=== PATIENT | female | born 1955 | race Caucasian/White ===

== ENCOUNTER 2022-11-29 08:25 | Emergency (ER) | payer OTHER, BC ==
--- OUTSIDE RECORDS SUMMARY | 2022-11-29 08:33 | XMS REPORT | Continuity of Care Document ---
:1955 Author Organization [facility] t Address [address] [place] [address] [place] [id number] Care Team Providers Name Role Phone Irwin White Attending Clinician Unavailable Jina Attending Clinician Unavailable Balaji Rose Attending Clinician [phone] Balaji Rose Attending Clinician Unavailable Jina Admitting Clinician Unavailable Balaji Rose Admitting Clinician Unavailable Payers Payer Name Policy Type Policy Number Effective Date Expiration Date S blanquita [place]: [id number] [facility] [place] [id number] 2018 EMPLOYEE PROGRAM 00:00:00 Blue Cross Blue C1 [id number] Common [facility] Shield [facility] [place] [facility] [id number] [facility] Blue Cross Blue C1 [id number] Common [facility] [facility] [place] - [facility] MEDICARE NOV[place] [id number] [facility] MEDICARE NOV[place]AS MB [id number] [facility] Blue Cross Blue C1 [id number] [facility] [place] [facility] [place] [facility] Blue Cross Blue C1 [id number] Common [facility] - [facility] MEDICARE NOV[place] MB [id number] 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 [id number] Body mass Problem Com mon index Spirit [BMI] - CHI 40.0-44.9, [facility] Age-relate Age-relate Problem C ommon d d Spirit osteoporos osteoporos - CHI is is without [facility] pathologic Medica l al Center fracture [id number] Status Problem Common post Spirit replacemen - [facility] t of left [facility] Decreased Decreased Problem Com mon hearing hearing [facility] [id number] S/P Problem Common bilateral Spirit mastectomy - 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 Age Age Problem Common related related Spirit osteoporos osteoporos - CHI is is 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 - CHI neoplasm overlappin St of female g sites of Che es breast right [facility] female Center breast Osteoporos Osteoporos Problem C milan is is [facility] Obesity Body mass Problem Commo n index Spirit (BMI) of - CHI [address] 39[address]9 [facility] Allergies, Adverse Reactions, Alerts Allergy Allergy Status Severity Reaction(s) Onset Inactive Treating Comm ents Source Name Type Date Date Clinician Penicill DA Active SV THROAT AND 2021-0 [facility] ins EARS ITCH 3-10 Clear 00:00: [place] 00 [facility] Sulfa DA Active SV HIVES/BREATH [facility] (Sulfona ING 3-10 Clear mide DIFFICULTIES 00:00: [place] Antibiot 00 [facility] palonose DA Active SV HEADACHES [facility] matthew 3-10 Clear 00:00: [address] nitrofur DA Active SV HEADACHES 2021- [facility] antoin 3-10 Clear 00:00: [place] 00 [facility] tramadol DA Active SV NAUSEA 2021-0 [facility] 3-10 Clear 00:00: [place] 00 [facility] ondanset DA Active SV HEADACHES 2021- [facility] anita 3-10 Clear 00:00: [address] lotepred DA Active SV REDNESS/SWEL 2021-0 HC A nol LING/ITCH 3-10 Clear 00:00: [address] 30 Drug Active headache Common allergy [facility] palonose palonose Active headache Comm on matthew matthew [facility] nitrofur nitrofur Active headache Comm on antoin, antoin, Spirit macrocry macrocry CHI stals / stals / St nitrofur nitrofur [facility] antoin, antoin, Medical monohydr monohydr Center ate ate tramadol tramadol Active nausea Common [facility] penicill penicill Active throat, ears Common amine amine itching [facility] 5337 Drug Active shortness of Comm on allergy breath [facility] Social History Social Habit Start Date Stop Date Quantity Comments Source History of Tobacco Use Co mmon [facility] Sex Assigned At Com mon [facility] Smoking Status Start Date Stop Date Source Never Smoker Common [facility] Medications Ordered Filled Start Stop Current Ordering Indication Dosage Frequency Signature Comments Components Source Medication Medication Date Date Medication? Clinician (SIG) Name Name Luciana Chowdhury 2021-11 No 40mg Common (Triamcinol (Triamcinol 1-30 S pirit one) one) 00:00: - [facility] Luciana Chowdhury 2021-11 No 40mg Common (Triamcinol (Triamcinol 1-30 S pirit one) one) 00:00: - [facility] Azithromyci Azithromyci 2021-11- No QD Azithromyc n 250 MG n 250 MG 12-20 1205 in 250 MG 00:00: 00:00 00 :00 Medrol 4 MG Medrol 4 MG 2021-11- No Medrol 4 08 11-14 MG 00:00: 00:00 00 :00 Medrol 4 MG Medrol 4 MG 2021-11- No Medrol 4 08 11-14 MG 00:00: 00:00 00 :00 Azithromyci Azithromyci 2021-11- No QD Azithromyc n 250 MG n 250 MG 11-28- in 250 MG 00:00: 00:00 00 :00 Azithromyci Azithromyci 2021-11- No QD Azithromyc n 250 MG n 250 MG 11-28 11- in 250 MG 00:00: 00:00 00 :00 Benzonatate Benzonatate 2021-11- No 1{capsu TID Benzonatat 200 MG 200 MG 0-14 10-24 le} e 200 MG 00:00: 00:00 00 :00 Benzonatate Benzonatate 2021-11- No 1{capsu TID Benzonatat 200 MG 200 MG 0-14 10-24 le} e 200 MG 00:00: 00:00 00 :00 Azithromyci Azithromyci 2021-11- No QD Azithromyc n 250 MG n 250 MG 0-14 10-19 in 250 MG 00:00: 0000 00 :00 Azithromyci Azithromyci 2021-11- No QD Azithromyc n 250 MG n 250 MG 014 10-19 in 250 MG 00: 00 :00 Azithromyci Azithromyci 2021- No QD Azithromyc n 250 MG n 250 MG 05-21 in 250 MG 00:: 00 :00 Azithromyci Azithromyci 2021- No QD Azithromyc n 250 MG n 250 MG 05-21 in 250 MG 00:: 00 :00 hydrocodone hydrocodone No hydrocodon Sonia 5 5 3-16 e 5 Orthope mg-acetamin mg-acetamin 00:00: mg-acetami dic ophen 325 ophen 325 00 nophen 325 Sports mg tablet mg tablet mg tablet Medicin Take 1 Take 1 Take 1 e tablet by tablet by tablet by mouth every mouth every mouth four to six four to six every four hours as hours as to six needed for needed for hours as pain pain needed for pain Zofran 4 mg Zofran 4 mg No Zofran 4 Sonia tablet Take tablet Take 3-16 mg tablet Orthope 1 tablet by 1 tablet by 00:00: Take 1 dic mouth every mouth every 00 tablet by Sports six hours six hours mouth Medi derrek as needed as needed every six e for nausea for nausea hours as and/or and/or needed for vomiting vomiting nausea and/or vomiting Azithromyci Azithromyci 2020-11- No QD Azithromyc n 250 MG n 250 MG 12-01-16 in 250 MG 00:00: 00:00 00 :00 Azithromyci Azithromyci 2020-11- No QD Azithromyc n 250 MG n 250 MG 12-01-16 in 250 MG 00:00: 00:00 00 :00 Echinacea Echinacea No Echinacea 62.5 MG 62.5 MG 62.5 MG Montelukast Montelukast No Montelukas Sodium 10 Sodium 10 t Sodium MG MG 10 MG Ketoconazol Ketoconazol No Ketoconazo e 2 % e 2 % le 2 % Magnesium - Magnesium - No Magnesium - Super B Super B No Super B Complex Complex Complex Calcium Calcium No Calcium Cranberry Cranberry No Cranberry Ibandronate Ibandronate No Ibandronat Sodium 150 Sodium 150 e Sodium MG MG 150 MG Fish Oil Fish Oil No Fish Oil 875 MG 875 MG 875 MG Glucosamine Glucosamine No Glucosamin e Loratadine Loratadine No 1{table QD Loratadine 10 MG 10 MG t} 10 MG Hair Skin Hair Skin No Hair Skin Nails Nails Nails Gabapentin Gabapentin No Gabapentin 100 MG 100 MG 100 MG Tumersaid Tumersaid No Tumersaid Probiotic Probiotic No Probiotic Aspirin 81 Aspirin 81 No 1{table QD Aspirin 81 81 MG 81 MG t} 81 MG Olopatadine Olopatadine No Olopatadin HCl 0.2 % HCl 0.2 % e HCl 0.2 % Multi Multi No Multi Vitamin Vitamin Vitamin Echinacea Echinacea No Echinacea 62.5 MG 62.5 MG 62.5 MG Montelukast Montelukast No Montelukas Sodium 10 Sodium 10 t Sodium MG MG 10 MG Ketoconazol Ketoconazol No Ketoconazo e 2 % e 2 % le 2 % Magnesium - Magnesium - No Magnesium - Super B Super B No Super B Complex Complex Complex Calcium Calcium No Calcium Olopatadine Olopatadine No Olopatadin HCl 0.2 % HCl 0.2 % e HCl 0.2 % Loratadine Loratadine No 1{table QD Loratadine 10 MG 10 MG t} 10 MG Gabapentin Gabapentin No Gabapentin 100 MG 100 MG 100 MG Fish Oil Fish Oil No Fish Oil 875 MG 875 MG 875 MG Montelukast Montelukast No QD Montelukas Sodium 10 Sodium 10 t Sodium MG MG 10 MG Ketoconazol Ketoconazol No Ketoconazo e 2 % e 2 % le 2 % Tumersaid Tumersaid No Tumersaid Hair Skin Hair Skin No Hair Skin Nails Nails Nails Calcium Calcium No Calcium Gabapentin Gabapentin No Gabapentin 100 MG 100 MG 100 MG Echinacea Echinacea No Echinacea 62.5 MG 62.5 MG 62.5 MG Glucosamine Glucosamine No Glucosamin e Probiotic Probiotic No Probiotic Magnesium - Magnesium - No Magnesium - Multi Multi No Multi Vitamin Vitamin Vitamin Aspirin 81 Aspirin 81 No 1{table QD Aspirin 81 81 MG 81 MG t} 81 MG Cranberry Cranberry No Cranberry Super B Super B No Super B Complex Complex Complex Ibandronate Ibandronate No Ibandronat Sodium 150 Sodium 150 e Sodium MG MG 150 MG Olopatadine Olopatadine No Olopatadin HCl 0.2 % HCl 0.2 % e HCl 0.2 % Loratadine Loratadine No 1{table QD Loratadine 10 MG 10 MG t} 10 MG Gabapentin Gabapentin No Gabapentin 100 MG 100 MG 100 MG Fish Oil Fish Oil No Fish Oil 875 MG 875 MG 875 MG Montelukast Montelukast No QD Montelukas Sodium 10 Sodium 10 t Sodium MG MG 10 MG Ketoconazol Ketoconazol No Ketoconazo e 2 % e 2 % le 2 % Tumersaid Tumersaid No Tumersaid Hair Skin Hair Skin No Hair Skin Nails Nails Nails Calcium Calcium No Calcium Gabapentin Gabapentin No Gabapentin 100 MG 100 MG 100 MG Echinacea Echinacea No Echinacea 62.5 MG 62.5 MG 62.5 MG Glucosamine Glucosamine No Glucosamin e Probiotic Probiotic No Probiotic Magnesium - Magnesium - No Magnesium - Multi Multi No Multi Vitamin Vitamin Vitamin Aspirin 81 Aspirin 81 No 1{table QD Aspirin 81 81 MG 81 MG t} 81 MG Cranberry Cranberry No Cranberry Super B Super B No Super B Complex Complex Complex Ibandronate Ibandronate No Ibandronat Sodium 150 Sodium 150 e Sodium MG MG 150 MG Ibandronate Ibandronate No Ibandronat Sodium 150 Sodium 150 e Sodium MG MG 150 MG Gabapentin Gabapentin No Gabapentin 100 MG 100 MG 100 MG Montelukast Montelukast No QD Montelukas Sodium 10 Sodium 10 t Sodium MG MG 10 MG Loratadine Loratadine No 1{table QD Loratadine 10 MG 10 MG t} 10 MG Olopatadine Olopatadine No Olopatadin HCl 0.2 % HCl 0.2 % e HCl 0.2 % Ibandronate Ibandronate No Ibandronat Sodium 150 Sodium 150 e Sodium MG MG 150 MG Gabapentin Gabapentin No Gabapentin 100 MG 100 MG 100 MG Montelukast Montelukast No QD Montelukas Sodium 10 Sodium 10 t Sodium MG MG 10 MG Loratadine Loratadine No 1{table QD Loratadine 10 MG 10 MG t} 10 MG Olopatadine Olopatadine No Olopatadin HCl 0.2 % HCl 0.2 % e HCl 0.2 % Ibandronate Ibandronate No Ibandronat Sodium 150 Sodium 150 e Sodium MG MG 150 MG Gabapentin Gabapentin No Gabapentin 100 MG 100 MG 100 MG Montelukast Montelukast No QD Montelukas Sodium 10 Sodium 10 t Sodium MG MG 10 MG Loratadine Loratadine No 1{table QD Loratadine 10 MG 10 MG t} 10 MG Olopatadine Olopatadine No Olopatadin HCl 0.2 % HCl 0.2 % e HCl 0.2 % Ibandronate Ibandronate No Ibandronat Sodium 150 Sodium 150 e Sodium MG MG 150 MG Gabapentin Gabapentin No Gabapentin 100 MG 100 MG 100 MG Montelukast Montelukast No Montelukas Sodium 10 Sodium 10 t Sodium MG MG 10 MG Loratadine Loratadine No 1{table QD Loratadine 10 MG 10 MG t} 10 MG Olopatadine Olopatadine No Olopatadin HCl 0.2 % HCl 0.2 % e HCl 0.2 % Ibandronate Ibandronate No Ibandronat Sodium 150 Sodium 150 e Sodium MG MG 150 MG Gabapentin Gabapentin No Gabapentin 100 MG 100 MG 100 MG Montelukast Montelukast No Montelukas Sodium 10 Sodium 10 t Sodium MG MG 10 MG Loratadine Loratadine No 1{table QD Loratadine 10 MG 10 MG t} 10 MG Olopatadine Olopatadine No Olopatadin HCl 0.2 % HCl 0.2 % e HCl 0.2 % Gabapentin Gabapentin No Gabapentin 100 MG 100 MG 100 MG Loratadine Loratadine No 1{table QD Loratadine 10 MG 10 MG t} 10 MG Montelukast Montelukast No Montelukas Sodium 10 Sodium 10 t Sodium MG MG 10 MG Montelukast Montelukast No QD Montelukas Sodium 10 Sodium 10 t Sodium MG MG 10 MG Gabapentin Gabapentin No Gabapentin 100 MG 100 MG 100 MG Ketamine Ketamine No Ketamine HCl 10 HCl 10 HCl 10 MG/ML MG/ML MG/ML Diflorasone Diflorasone No 1{appli QD Diflorason Diacetate Diacetate cation} e 0.05 % 0.05 % Diacetate 0.05 % Olopatadine Olopatadine No Olopatadin HCl 0.2 % HCl 0.2 % e HCl 0.2 % Ibandronate Ibandronate No Ibandronat Sodium 150 Sodium 150 e Sodium MG MG 150 MG Ketamine Ketamine No Ketamine HCl 10 HCl 10 HCl 10 MG/ML MG/ML MG/ML azithromyci azithromyci No azithromyc Sonia n 250 mg n 250 mg in 250 mg Or thope tablet TAKE tablet TAKE tablet dic 2 TABLETS 2 TABLETS TAKE 2 Spo rts BY MOUTH BY MOUTH TABLETS BY M edicin TODAY, THEN TODAY, THEN MOUTH e TAKE 1 TAKE 1 TODAY, TABLET TABLET THEN TAKE DAILY FOR 4 DAILY FOR 4 1 TABLET DAYS DAYS DAILY FOR 4 DAYS Loratadine Loratadine No 1{table QD Loratadine 10 MG 10 MG t} 10 MG Montelukast Montelukast No Montelukas Sodium 10 Sodium 10 t Sodium MG MG 10 MG Gabapentin Gabapentin No Gabapentin 100 MG 100 MG 100 MG Ibandronate Ibandronate No Ibandronat Sodium 150 Sodium 150 e Sodium MG MG 150 MG Diflorasone Diflorasone No 1{appli QD Diflorason Diacetate Diacetate cation} e 0.05 % 0.05 % Diacetate 0.05 % Olopatadine Olopatadine No Olopatadin HCl 0.2 % HCl 0.2 % e HCl 0.2 % Ketamine Ketamine No Ketamine HCl 10 HCl 10 HCl 10 MG/ML MG/ML MG/ML Loratadine Loratadine No 1{table QD Loratadine 10 MG 10 MG t} 10 MG Montelukast Montelukast No Montelukas Sodium 10 Sodium 10 t Sodium MG MG 10 MG Gabapentin Gabapentin No Gabapentin 100 MG 100 MG 100 MG desonide desonide No desonide Aza zina 0.05 % 0.05 % 0.05 % Orthope topical topical topical dic cream APPLY cream APPLY cream Sports TO AFFECTED TO AFFECTED APPLY TO Medicin AREA TWICE AREA TWICE AFFECTED e A DAY A DAY AREA TWICE A DAY Ibandronate Ibandronate No Ibandronat Sodium 150 Sodium 150 e Sodium MG MG 150 MG Diflorasone Diflorasone No 1{appli QD Diflorason Diacetate Diacetate cation} e 0.05 % 0.05 % Diacetate 0.05 % Olopatadine Olopatadine No Olopatadin HCl 0.2 % HCl 0.2 % e HCl 0.2 % Ibandronate Ibandronate No Ibandronat Sodium 150 Sodium 150 e Sodium MG MG 150 MG Gabapentin Gabapentin No Gabapentin 100 MG 100 MG 100 MG Montelukast Montelukast No Montelukas Sodium 10 Sodium 10 t Sodium MG MG 10 MG Loratadine Loratadine No 1{table QD Loratadine 10 MG 10 MG t} 10 MG Ketamine Ketamine No Ketamine HCl 10 HCl 10 HCl 10 MG/ML MG/ML MG/ML Olopatadine Olopatadine No Olopatadin HCl 0.2 % HCl 0.2 % e HCl 0.2 % Diflorasone Diflorasone No 1{appli QD Diflorason Diacetate Diacetate cation} e 0.05 % 0.05 % Diacetate 0.05 % diclofenac diclofenac No diclofenac Sonia ER 100 mg ER 100 mg ER 100 mg Orthope tablet,exte tablet,exte tablet,ext dic nded nded ended Sports release 24 release 24 release 24 Medicin hr TAKE 1 hr TAKE 1 hr TAKE 1 e TABLET BY TABLET BY TABLET BY MOUTH EVERY MOUTH EVERY MOUTH DAY WITH A DAY WITH A EVERY DAY MEAL MEAL WITH A MEAL Ibandronate Ibandronate No Ibandronat Sodium 150 Sodium 150 e Sodium MG MG 150 MG Gabapentin Gabapentin No Gabapentin 100 MG 100 MG 100 MG Montelukast Montelukast No Montelukas Sodium 10 Sodium 10 t Sodium MG MG 10 MG Loratadine Loratadine No 1{table QD Loratadine 10 MG 10 MG t} 10 MG Ketamine Ketamine No Ketamine HCl 10 HCl 10 HCl 10 MG/ML MG/ML MG/ML Olopatadine Olopatadine No Olopatadin HCl 0.2 % HCl 0.2 % e HCl 0.2 % Diflorasone Diflorasone No 1{appli QD Diflorason Diacetate Diacetate cation} e 0.05 % 0.05 % Diacetate 0.05 % Ketamine Ketamine No Ketamine HCl 10 HCl 10 HCl 10 MG/ML MG/ML MG/ML Montelukast Montelukast No Montelukas Sodium 10 Sodium 10 t Sodium MG MG 10 MG Gabapentin Gabapentin No Gabapentin 100 MG 100 MG 100 MG diflorasone diflorasone No diflorason Sonia 0.05 % 0.05 % e 0.05 % Orthope topical topical topical dic ointment ointment ointment Spo rts Medicin e Ibandronate Ibandronate No Ibandronat Sodium 150 Sodium 150 e Sodium MG MG 150 MG Loratadine Loratadine No 1{table QD Loratadine 10 MG 10 MG t} 10 MG Diflorasone Diflorasone No 1{appli QD Diflorason Diacetate Diacetate cation} e 0.05 % 0.05 % Diacetate 0.05 % Olopatadine Olopatadine No Olopatadin HCl 0.2 % HCl 0.2 % e HCl 0.2 % Loratadine Loratadine No 1{table QD Loratadine 10 MG 10 MG t} 10 MG Olopatadine Olopatadine No Olopatadin HCl 0.2 % HCl 0.2 % e HCl 0.2 % Gabapentin Gabapentin No Gabapentin 100 MG 100 MG 100 MG Diflorasone Diflorasone No 1{appli QD Diflorason Diacetate Diacetate cation} e 0.05 % 0.05 % Diacetate 0.05 % Ketamine Ketamine No Ketamine HCl 10 HCl 10 HCl 10 MG/ML MG/ML MG/ML Montelukast Montelukast No Montelukas Sodium 10 Sodium 10 t Sodium MG MG 10 MG docusate docusate No docusate Aza zina sodium 100 sodium 100 sodium 100 Orthope mg capsule mg capsule mg capsule dic TAKE 1 TAKE 1 TAKE 1 Sports CAPSULE BY CAPSULE BY CAPSULE BY Medicin MOUTH TWICE MOUTH TWICE MOUTH e A DAY A DAY TWICE A DAY Ibandronate Ibandronate No Ibandronat Sodium 150 Sodium 150 e Sodium MG MG 150 MG Hair Skin Hair Skin No Hair Skin Nails Nails Nails Probiotic Probiotic No Probiotic Olopatadine Olopatadine No Olopatadin HCl 0.2 % HCl 0.2 % e HCl 0.2 % Montelukast Montelukast No Montelukas Sodium 10 Sodium 10 t Sodium MG MG 10 MG Gabapentin Gabapentin No Gabapentin 100 MG 100 MG 100 MG Echinacea Echinacea No Echinacea 62.5 MG 62.5 MG 62.5 MG Super B Super B No Super B Complex Complex Complex Glucosamine Glucosamine No Glucosamin e Fish Oil Fish Oil No Fish Oil 875 MG 875 MG 875 MG doxycycline doxycycline No doxycyclin Sonia hyclate 100 hyclate 100 e hyclate Orthope mg tablet mg tablet 100 mg dic TAKE 1 TAKE 1 tablet Sports TABLET BY TABLET BY TAKE 1 Med icin MOUTH TWICE MOUTH TWICE TABLET BY e A DAY A DAY MOUTH TWICE A DAY Ibandronate Ibandronate No Ibandronat Sodium 150 Sodium 150 e Sodium MG MG 150 MG Aspirin 81 Aspirin 81 No 1{table QD Aspirin 81 81 MG 81 MG t} 81 MG Multi Multi No Multi Vitamin Vitamin Vitamin Loratadine Loratadine No 1{table QD Loratadine 10 MG 10 MG t} 10 MG Calcium Calcium No Calcium Tumersaid Tumersaid No Tumersaid Cranberry Cranberry No Cranberry Magnesium - Magnesium - No Magnesium - Ketoconazol Ketoconazol No Ketoconazo e 2 % e 2 % le 2 % Cranberry Cranberry No Cranberry fluocinonid fluocinonid No fluocinoni Sonia e 0.05 % e 0.05 % de 0.05 % Or thope topical topical topical dic solution solution solution Spo rts APPLY TO APPLY TO APPLY TO Med icin SCALP TWICE SCALP TWICE SCALP e A DAY A DAY TWICE A DAY Ibandronate Ibandronate No Ibandronat Sodium 150 Sodium 150 e Sodium MG MG 150 MG Fish Oil Fish Oil No Fish Oil 875 MG 875 MG 875 MG Glucosamine Glucosamine No Glucosamin e Loratadine Loratadine No 1{table QD Loratadine 10 MG 10 MG t} 10 MG Hair Skin Hair Skin No Hair Skin Nails Nails Nails Gabapentin Gabapentin No Gabapentin 100 MG 100 MG 100 MG Tumersaid Tumersaid No Tumersaid Probiotic Probiotic No Probiotic Aspirin 81 Aspirin 81 No 1{table QD Aspirin 81 81 MG 81 MG t} 81 MG Olopatadine Olopatadine No Olopatadin HCl 0.2 % HCl 0.2 % e HCl 0.2 % gabapentin gabapentin No gabapentin Sonia 100 mg 100 mg 100 mg Orthope capsule capsule capsule dic TAKE 1 TAKE 1 TAKE 1 Sports CAPSULE BY CAPSULE BY CAPSULE BY Medicin MOUTH MOUTH MOUTH e EVERYDAY AT EVERYDAY AT EVERYDAY BEDTIME BEDTIME AT BEDTIME ORAL 90 ORAL 90 ORAL 90 DAYS DAYS DAYS Multi Multi No Multi Vitamin Vitamin Vitamin hydrocodone hydrocodone No hydrocodon Sonia 5 5 e 5 Orthope mg-acetamin mg-acetamin mg-acetami dic ophen 325 ophen 325 nophen 325 Sports mg tablet mg tablet mg tablet Medicin TAKE 1 TAKE 1 TAKE 1 e TABLET BY TABLET BY TABLET BY MOUTH EVERY MOUTH EVERY MOUTH 4 TO 6 4 TO 6 EVERY 4 TO HOURS HOURS 6 HOURS NEEDED FOR NEEDED FOR NEEDED FOR PAIN PAIN PAIN ibandronate ibandronate No ibandronat Sonia 150 mg 150 mg e 150 mg Orthope tablet TAKE tablet TAKE tablet dic 1 TABLET BY 1 TABLET BY TAKE 1 Sports MOUTH EVERY MOUTH EVERY TABLET BY Medicin MONTH MONTH MOUTH e EVERY MONTH ibuprofen ibuprofen No ibuprofen Sonia 800 mg 800 mg 800 mg Orthope tablet TAKE tablet TAKE tablet dic 1 TABLET BY 1 TABLET BY TAKE 1 Sports MOUTH THREE MOUTH THREE TABLET BY Medicin TIMES A DAY TIMES A DAY MOUTH e WITH MEALS WITH MEALS THREE TIMES A DAY WITH MEALS ketoconazol ketoconazol No ketoconazo Sonia e 2 % e 2 % le 2 % Orthope topical topical topical dic cream APPLY cream APPLY cream Sports TWICE A DAY TWICE A DAY APPLY Medicin TO FACE TO FACE TWICE A e DAY TO FACE loteprednol loteprednol No lotepredno Sonia etabonate etabonate l Ortho pe 0.5 % eye 0.5 % eye etabonate dic drops,suspe drops,suspe 0.5 % eye Sports nsion nsion drops,susp Medicin INSTILL 1 INSTILL 1 ension e DROP INTO DROP INTO INSTILL 1 BOTH EYES BOTH EYES DROP INTO TWICE A DAY TWICE A DAY BOTH EYES TWICE A DAY montelukast montelukast No montelukas Sonia 10 mg 10 mg t 10 mg Orthope tablet TAKE tablet TAKE tablet dic 1 TABLET BY 1 TABLET BY TAKE 1 Sports MOUTH EVERY MOUTH EVERY TABLET BY Medicin DAY MOUTH e EVERY DAY olopatadine olopatadine No olopatadin Sonia 0.2 % eye 0.2 % eye e 0.2 % Or thope drops drops eye drops dic INSTILL 1 INSTILL 1 INSTILL 1 Sports DROP INTO DROP INTO DROP INTO Medicin BOTH EYES BOTH EYES BOTH EYES e ONCE A DAY ONCE A DAY ONCE A DAY ondansetron ondansetron No ondansetro Sonia HCl 4 mg HCl 4 mg n HCl 4 mg O rthope tablet TAKE tablet TAKE tablet dic 1 TABLET BY 1 TABLET BY TAKE 1 Sports MOUTH EVERY MOUTH EVERY TABLET BY Medicin SIX HOURS SIX HOURS MOUTH e NEEDED NEEDED EVERY SIX FOR NAUSEA FOR NAUSEA HOURS AND/OR AND/OR NEEDED FOR VOMITING VOMITING NAUSEA AND/OR VOMITING pain-(p34x) pain-(p34x) No pain-(p34x Sonia []ketamine1 []ketamine1 )[]ketamin Orthope 0%/ketoprof 0%/ketoprof e10%/ketop dic en8%/baclof en8%/baclof rofen8%/ba Sports en2%/gabape en2%/gabape clofen2%/g Medicin ntin6% ntin6% abapentin6 e APPLY 1 TO APPLY 1 TO % APPLY 1 2 GRAMS TO 2 GRAMS TO TO 2 GRAMS AFFECTED AFFECTED TO AREA 4 AREA 4 AFFECTED TIMES DAILY TIMES DAILY AREA 4 OR OR TIMES DIRECTED. DIRECTED. DAILY OR RUB IN WELL RUB IN WELL FOR 2 FOR 2 DIRECTED. MINUTES MINUTES RUB IN WELL FOR 2 MINUTES triamcinolo triamcinolo No triamcinol Sonia ne ne one Orthope acetonide acetonide acetonide dic 0.1 % 0.1 % 0.1 % Sports topical topical topical Medici n cream APPLY cream APPLY cream e TWICE A DAY TWICE A DAY APPLY TO NECK TO NECK TWICE A DAY TO NECK Zylet 0.3 Zylet 0.3 No Zylet 0.3 Sonia %-0.5 % eye %-0.5 % eye %-0.5 % Orthope drops,suspe drops,suspe eye d ic nsion nsion drops,susp Sports INSTILL 1 INSTILL 1 ension Med icin DROP INTO DROP INTO INSTILL 1 e RIGHT EYE RIGHT EYE DROP INTO TWICE A DAY TWICE A DAY RIGHT EYE TWICE A DAY azithromyci azithromyci No azithromyc Sonia n 250 mg n 250 mg in 250 mg Or thope tablet TAKE tablet TAKE tablet dic 2 TABLETS 2 TABLETS TAKE 2 Spo rts BY MOUTH BY MOUTH TABLETS BY M edicin TODAY, THEN TODAY, THEN MOUTH e TAKE 1 TAKE 1 TODAY, TABLET TABLET THEN TAKE DAILY FOR 4 DAILY FOR 4 1 TABLET DAYS DAYS DAILY FOR 4 DAYS desonide desonide No desonide Aza zina 0.05 % 0.05 % 0.05 % [facility] topical topical topical dic cream APPLY cream APPLY cream Sports TO AFFECTED TO AFFECTED APPLY TO Medicin AREA TWICE AREA TWICE AFFECTED e A DAY A DAY AREA TWICE A DAY diclofenac diclofenac No diclofenac Sonia ER 100 mg ER 100 mg ER 100 mg [facility] tablet,exte tablet,exte tablet,ext dic nded nded ended Sports release 24 release 24 release 24 Medicin hr TAKE 1 hr TAKE 1 hr TAKE 1 e TABLET BY TABLET BY TABLET BY MOUTH EVERY MOUTH EVERY MOUTH DAY WITH A DAY WITH A EVERY DAY MEAL MEAL WITH A MEAL diflorasone diflorasone No diflorason Sonia 0.05 % 0.05 % e 0.05 % [facility] topical topical topical dic ointment ointment ointment Spo rts Medicin e docusate docusate No docusate Aza zina sodium 100 sodium 100 sodium 100 [facility] mg capsule mg capsule mg capsule dic TAKE 1 TAKE 1 TAKE 1 Sports CAPSULE BY CAPSULE BY CAPSULE BY Medicin MOUTH TWICE MOUTH TWICE MOUTH e A DAY A DAY TWICE A DAY doxycycline doxycycline No doxycyclin Sonia hyclate 100 hyclate 100 e hyclate Orth[facility] mg tablet mg tablet 100 mg dic TAKE 1 TAKE 1 tablet Sports TABLET BY TABLET BY TAKE 1 Med icin MOUTH TWICE MOUTH TWICE TABLET BY e A DAY A DAY MOUTH TWICE A DAY fluocinonid fluocinonid No fluocinoni Sonia e 0.05 % e 0.05 % de 0.05 % Or thope topical topical topical dic solution solution solution Spo rts APPLY TO APPLY TO APPLY TO Med icin SCALP TWICE SCALP TWICE SCALP e A DAY A DAY TWICE A DAY gabapentin gabapentin No gabapentin Sonia 100 mg 100 mg 100 mg [facility] capsule capsule capsule dic TAKE 1 TAKE 1 TAKE 1 Sports CAPSULE BY CAPSULE BY CAPSULE BY Medicin MOUTH MOUTH MOUTH e EVERYDAY AT EVERYDAY AT EVERYDAY BEDTIME BEDTIME AT BEDTIME ORAL 90 ORAL 90 ORAL 90 DAYS DAYS DAYS ibandronate ibandronate No ibandronat Sonia 150 mg 150 mg e 150 mg [facility] tablet TAKE tablet TAKE tablet dic 1 TABLET BY 1 TABLET BY TAKE 1 Sports MOUTH EVERY MOUTH EVERY TABLET BY Medicin MONTH MONTH MOUTH e EVERY MONTH ibuprofen ibuprofen No ibuprofen Sonia 800 mg 800 mg 800 mg [facility] tablet TAKE tablet TAKE tablet dic 1 TABLET BY 1 TABLET BY TAKE 1 Sports MOUTH THREE MOUTH THREE TABLET BY Medicin TIMES A DAY TIMES A DAY MOUTH e WITH MEALS WITH MEALS THREE TIMES A DAY WITH MEALS ketoconazol ketoconazol No ketoconazo Sonia e 2 % e 2 % le 2 % [facility] topical topical topical dic cream APPLY cream APPLY cream Sports TWICE A DAY TWICE A DAY APPLY Medicin TO FACE TO FACE TWICE A e DAY TO FACE loteprednol loteprednol No lotepredno Sonia etabonate etabonate l Ortho pe 0.5 % eye 0.5 % eye etabonate dic drops,suspe drops,suspe 0.5 % eye Sports nsion nsion drops,susp Medicin INSTILL 1 INSTILL 1 ension e DROP INTO DROP INTO INSTILL 1 BOTH EYES BOTH EYES DROP INTO TWICE A DAY TWICE A DAY BOTH EYES TWICE A DAY montelukast montelukast No montelukas Sonia 10 mg 10 mg t 10 mg [facility] tablet TAKE tablet TAKE tablet dic 1 TABLET BY 1 TABLET BY TAKE 1 Sports MOUTH EVERY MOUTH EVERY TABLET BY Medicin DAY DAY MOUTH e EVERY DAY olopatadine olopatadine No olopatadin Sonia 0.2 % eye 0.2 % eye e 0.2 % Or thope drops drops eye drops dic INSTILL 1 INSTILL 1 INSTILL 1 Sports DROP INTO DROP INTO DROP INTO Medicin BOTH EYES BOTH EYES BOTH EYES e ONCE A DAY ONCE A DAY ONCE A DAY pain-(p34x) pain-(p34x) No pain-(p34x Sonia []ketamine1 []ketamine1 )[]ketamin Orthope 0%/ketoprof 0%/ketoprof e10%/ketop dic en8%/baclof en8%/baclof rofen8%/ba Sports en2%/gabape en2%/gabape clofen2%/g Medicin ntin6% ntin6% abapentin6 e APPLY 1 TO APPLY 1 TO % APPLY 1 2 GRAMS TO 2 GRAMS TO TO 2 GRAMS AFFECTED AFFECTED TO AREA 4 AREA 4 AFFECTED TIMES DAILY TIMES DAILY AREA 4 OR OR TIMES DIRECTED. DIRECTED. DAILY OR RUB IN WELL RUB IN WELL FOR 2 FOR 2 DIRECTED. MINUTES MINUTES RUB IN WELL FOR 2 MINUTES triamcinolo triamcinolo No triamcinol Sonia ne ne one [facility] acetonide acetonide acetonide dic 0.1 % 0.1 % 0.1 % Sports topical topical topical Medici n cream APPLY cream APPLY cream e TWICE A DAY TWICE A DAY APPLY TO NECK TO NECK TWICE A DAY TO NECK Zylet 0.3 Zylet 0.3 No Zylet 0.3 Sonia %-0.5 % eye %-0.5 % eye %-0.5 % [facility] drops,suspe drops,suspe eye d ic nsion nsion drops,susp Sports INSTILL 1 INSTILL 1 ension Med icin DROP INTO DROP INTO INSTILL 1 e RIGHT EYE RIGHT EYE DROP INTO TWICE A DAY TWICE A DAY RIGHT EYE TWICE A DAY Immunizations Ordered Immunization Filled Immunization Date Status Kenneth dudley Source Name Name FluAD FluAD 2021-08-20 [facility] FluAD FluAD 2021-08-20 [facility]pleted [facility] 09:[facility]:00 - [facility] FluAD FluAD 2021-08-20 [facility]pleted [facility] 09:[facility]:00 - [facility] FluAD FluAD 2021-08-20 Completed [facility] 09[facility]45:00 - [facility] FluAD FluAD 2021-08-20 Completed [facility] 09:45:00 - [facility] FluAD FluAD 2021-08-20 Completed [facility] 09:45:00 - [facility] FluAD FluAD 2021-08-20 Completed [facility] 09:45:00 - [facility] FluAD FluAD 2021-08-20 Completed [facility] 09:45:00 - [facility] FluAD FluAD 2021-08-20 Completed [facility] 09:45:00 - [facility] FluAD FluAD 2021-08-20 Completed [facility] 09:45:00 - [facility] FluAD FluAD 2021-08-20 Completed [facility] 09:45:00 - [facility] FluAD FluAD 2021-08-20 Completed [facility] 09:45:00 - [facility] FluAD FluAD 2021-08-20 Completed [facility] 09:45:00 - [facility] FluAD FluAD 2021-08-20 Completed [facility] 09:45:00 - [facility] Shingrix Shingrix 2020-09-12 Completed [facility] 14:08:00 - [facility] Shingrix Shingrix 2020-09-12 Completed [facility] 14:08:00 - [facility] Shingrix Shingrix 2020-09-12 Completed [facility] 14:08:00 - [facility] Shingrix Shingrix 2020-09-12 Completed [facility] 14:08:00 - [facility] Shingrix Shingrix 2020-09-12 Completed [facility] 14:08:00 - [facility] Shingrix Shingrix 2020-09-12 Completed [facility] 14:08:00 - [facility] Shingrix Shingrix 2020-09-12 Completed [facility] 14:08:00 - [facility] Shingrix Shingrix 2020-09-12 Completed [facility] 14:08:00 - [facility] Shingrix Shingrix 2020-09-12 Completed [facility] 14:08:00 - [facility] Shingrix Shingrix 2020-09-12 Completed [facility] 14:08:00 - [facility] Shingrix Shingrix 2020-09-12 Completed [facility] 14:08:00 - [facility] Shingrix Shingrix 2020-09-12 Completed [facility] 14:08:00 - [facility] Shingrix Shingrix 2020-09-12 Completed [facility] 14:08:00 - [facility] Shingrix Shingrix 2020-09-12 Completed [facility] 14:08:00 - [facility] Shingrix Shingrix 2020-09-12 Completed [facility] 14:08:00 - [facility] Shingrix Shingrix 2020-09-12 Completed [facility] 14:08:00 - [facility] Shingrix Shingrix 2020-09-12 Completed [facility] 14:08:00 - [facility] Shingrix Shingrix 2020-06-26 Completed [facility] 14:08:00 - [facility] Shingrix Shingrix 2020-06-26 Completed [facility] 14:08:00 - [facility] Shingrix Shingrix 2020-06-26 Completed [facility] 14:08:00 - [facility] Shingrix Shingrix 2020-06-26 Completed [facility] 14:08:00 - [facility] Shingrix Shingrix 2020-06-26 Completed [facility] 14:08:00 - [facility] Shingrix Shingrix 2020-06-26 Completed [facility] 14:08:00 - [facility] Shingrix Shingrix 2020-06-26 Completed [facility] 14:08:00 - [facility] Shingrix Shingrix 2020-06-26 Completed [facility] 14:08:00 - [facility] Shingrix Shingrix 2020-06-26 Completed [facility] 14:08:00 - [facility] Shingrix Shingrix 2020-06-26 Completed [facility] 14:08:00 - [facility] Shingrix Shingrix 2020-06-26 Completed [facility] 14:08:00 - [facility] Shingrix Shingrix 2020-06-26 Completed [facility] 14:08:00 - [facility] Shingrix Shingrix 2020-06-26 Completed [facility] 14:08:00 - [facility] Shingrix Shingrix 2020-06-26 Completed [facility] 14:08:00 - [facility] Shingrix Shingrix 2020-06-26 Completed [facility] 14:08:00 - [facility] Shingrix Shingrix 2020-06-26 Completed [facility] 14:08:00 - [facility] Shingrix Shingrix 2020-06-26 Completed [facility] 14:08:00 [facility] Pneumovax (PPSV23) Pneumovax (PPSV23) 2019-09-16 Completed [facility] 14:08:00 - [facility] Pneumovax (PPSV23) Pneumovax (PPSV23) 2019-09-16 Completed [facility] 14:08:00 [facility] Pneumovax (PPSV23) Pneumovax (PPSV23) 2019-09-16 Completed [facility] 14:08:00 [facility] Pneumovax (PPSV23) Pneumovax (PPSV23) 2019-09-16 Completed [facility] 14:08:00 [facility] Pneumovax (PPSV23) Pneumovax (PPSV23) 2019-09-16 Completed [facility] 14:08:00 [facility] Pneumovax (PPSV23) Pneumovax (PPSV23) 2019-09-16 Completed [facility] 14:08:00 - [facility] Pneumovax (PPSV23) Pneumovax (PPSV23) 2019-09-16 Completed [facility] 14:08:00 - [facility] Pneumovax (PPSV23) Pneumovax (PPSV23) 2019-09-16 Completed [facility] 14:08:00 [facility] Pneumovax (PPSV23) Pneumovax (PPSV23) 2019-09-16 Completed [facility] 14:08:00 [facility] Pneumovax (PPSV23) Pneumovax (PPSV23) 2019-09-16 Completed [facility] 14:08:00 [facility] Pneumovax (PPSV23) Pneumovax (PPSV23) 2019-09-16 Completed [facility] 14:08:00 - [facility] Pneumovax (PPSV23) Pneumovax (PPSV23) 2019-09-16 Completed [facility] 14:08:00 - [facility] Pneumovax (PPSV23) Pneumovax (PPSV23) 2019-09-16 Completed [facility] 14:08:00 [facility] Pneumovax (PPSV23) Pneumovax (PPSV23) 2019-09-16 Completed [facility] 14:08:00 [facility] Pneumovax (PPSV23) Pneumovax (PPSV23) 2019-09-16 Completed [facility] 14:08:00 [facility] Pneumovax (PPSV23) Pneumovax (PPSV23) 2019-09-16 Completed [facility] 14:08:00 [facility] Pneumovax (PPSV23) Pneumovax (PPSV23) 2019-09-16 Completed [facility] 14:08:00 [facility] Vital Signs Vital Name Observation Time Observation Value Comments Source height 2022-10-20 13:00:00 64 [in_i] [facility] weight 2022-10-20 13:00:00 223.0 [lb_av] [facility] temperature 2022-10-20 13:00:00 97.9 [degF] [facility] bmi 2022-10-20 13:00:00 38.27 kg/m2 [facility] oximetry 2022-10-20 13:00:00 95 % [facility] respiratory rate 2022-10-20 13:00:00 18 /min [facility] [place] pressure 2022-10-20 13:00:00 138 mm[Hg] [facility] - systolic [facility] blood pressure 2022-10-20 13:00:00 85 mm[Hg] [facility] - diastolic [facility] height 2022-09-28 09:50:00 64 [in_i] [facility] weight 2022-09-28 09:50:00 224.5 [lb_av] [facility] temperature 2022-09-28 09:50:00 97.3 [degF] [facility] bmi 2022-09-28 09:50:00 38.53 kg/m2 [facility] oximetry 2022-09-28 09:50:00 98 % [facility] respiratory rate 2022-09-28 09:50:00 18 /min [facility] [place] pressure 2022-09-28 09:50:00 123 mm[Hg] [facility] - systolic [facility] blood pressure 2022-09-28 09:50:00 67 mm[Hg] [facility] - diastolic [facility] height 2022-09-03 10:10:00 64 [in_i] [facility] weight 2022-09-03 10:10:00 225 [lb_av] [facility] temperature 2022-09-03 10:10:00 97.4 [degF] [facility] bmi 2022-09-03 10:10:00 38.62 kg/m2 [facility] Height 2022-08-04 00:00:00 64 [in_i] [facility] height 2022-05-31 08:20:00 64 [in_i] [facility] weight 2022-05-31 08:20:00 225 [lb_av] [facility] temperature 2022-05-31 08:20:00 97.9 [degF] [facility] bmi 2022-05-31 08:20:00 38.62 kg/m2 [facility] oximetry 2022-05-31 08:20:00 98 % [facility] respiratory rate 2022-05-31 08:20:00 16 /min [facility] [place] pressure 2022-05-31 08:20:00 136 mm[Hg] [facility] - systolic [facility] blood pressure 2022-05-31 08:20:00 82 mm[Hg] [facility] - diastolic [facility] height 2022-05-21 11:40:00 64 [in_i] [facility] weight 2022-05-21 11:40:00 255 [lb_av] [facility] temperature 2022-05-21 11:40:00 100.9 [degF] [facility] bmi 2022-05-21 11:40:00 43.77 kg/m2 [facility] blood pressure 2022-05-21 11:40:00 132 mm[Hg] [facility] - systolic [facility] blood pressure 2022-05-21 11:40:00 70 mm[Hg] [facility] - diastolic [facility] Height 2022-04-28 00:00:00 64 [in_i] [facility] BMI (Body Mass 2022-04-28 00:00:00 38.4 kg/m2 [facility] Index) Sports Medicine Body Weight 2022-04-28 00:00:00 224 [lb_av] [facility] Sports Medicine height 2021-11-30 08:10:00 64 [in_i] [facility] weight 2021-11-30 08:10:00 254.0 [lb_av] [facility] temperature 2021-11-30 08:10:00 97.2 [degF] [facility] bmi 2021-11-30 08:10:00 43.59 kg[facility]m2 [facility] 2021-11-30 08:10:00 97 % [facility] 2021-11-30 08:10:00 17 /min [facility] [place] pressure 2021-11-30 08:10:00 132 mm[Hg] Common [facility] - systolic [facility] blood pressure 2021-11-30 08:10:00 67 mm[Hg] Common [facility] - diastolic [facility] height 2021-11-30 08:20:00 64 [in_i] Common S [facility] weight 2021-11-30 08:20:00 254.0 [lb_av] [facility] temperature 2021-11-30 08:20:00 97.2 [degF] Common [facility] bmi 2021-11-30 08:20:00 43.59 kg/m2 [facility] oximetry 2021-11-30 08:20:00 97 % [facility] 2021-11-30 08:20:00 17 /min [facility] blood pressure 2021-11-30 08:20:00 132 mm[Hg] Common [facility] - systolic [facility] blood pressure 2021-11-30 08:20:00 67 mm[Hg] Common [facility] - diastolic [facility] height 2021-10-26 09:40:00 64 [in_i] [facility] weight 2021-10-26 09:40:00 229.3 [lb_av] [facility] temperature 2021-10-26 09:40:00 97.4 [degF] Common [facility] bmi 2021-10-26 09:40:00 39.35 kg/m2 [facility] oximetry 2021-10-26 09:40:00 98 % [facility] respiratory rate 2021-10-26 09:40:00 18 /min [facility] [place] pressure 2021-10-26 09:40:00 135 mm[Hg] [facility] systolic [facility] blood pressure 2021-10-26 09:40:00 74 mm[Hg] [facility] diastolic [facility] height 2021-10-01 09:00:00 64 [in_i] [facility] weight 2021-10-01 09:00:00 223 [lb_av] [facility] temperature 2021-10-01 09:00:00 97.3 [degF] [facility] bmi 2021-10-01 09:00:00 38.27 kg/m2 [facility] height 2021-06-11 14:20:00 64 [in_i] [facility] weight 2021-06-11 14:20:00 231.3 [lb_av] [facility] temperature 2021-06-11 14:20:00 98.1 [degF] [facility] bmi 2021-06-11 14:20:00 39.7 kg/m2 [facility] oximetry 2021-06-11 14:20:00 96 % [facility] respiratory rate 2021-06-11 14:20:00 18 /min [facility] [place] pressure 2021-06-11 14:20:00 132 mm[Hg] [facility] - systolic [facility] blood pressure 2021-06-11 14:20:00 72 mm[Hg] Common [facility] - diastolic [facility] Procedures Procedure Date / Time Performed Performing Clinician Sourmiquel e XR, shoulder, 2 or 2022-08-04 00:00:00 [facility] Medicine XR, shoulder, 2 or 2022-04-28 00:00:00 [facility] Plan of Care Planned Activity Planned Date Details Comments Source Future Appointment 2023-02-02 [facility] 08:30:[address]; , [place] [address] Instructions [facility] Encounters Start End Encounter Admission Attending Care Care Encounter Source Date/Time Date/Time Type Type Clinicians Facility Department ID 2022-09-03 Outpatient White, STLMLC [facility] [id number] [facility] 09:07:02 [facility] 2022-02-09 Outpatient White, STLMLC ST[facility] [id number] [facility] 08:18:03 [facility] 2022-01-14 Outpatient White, STLMLC ST[facility] [id number] [facility] 09:11:03 [place] [facility] 2021-12-16 Outpatient White, STLMLC STLC [id number] Common 14:32:38 [facility] 2021-12-16 Outpatient White, STLMLC STLC [id number] Common 14:26:56 [place] [facility] 2021-12-16 Outpatient White, STLMLC STLC [id number] Common 14:20:54 [place] [facility] 2021-12-16 Outpatient White, STLMLC STLC [id number] Common 14:20:37 [place] [facility] 2021-12-16 Outpatient White, STLMLC STLC [id number] Common 14:11:48 [place] [facility] 2021-12-16 Outpatient White, STLMLC STLMLC [id number] Common 13:29:24 [facility] [id number] [facility] 2022-10-20 2022-10-20 OFFICE STLMLC STLMLC [id number] Co mmon 00:00:00 00:00:00 VISIT EST Spir it PT LEVEL 3 [facility] 2022-10-19 2022-10-19 (TEL) STLMLC STLMLC [id number] Co mmon 00:00:00 00:00:00 [facility] 2022-09-28 2022-09-28 (TEL) STLMLC STLMLC [id number] Co mmon 00:00:00 00:00:00 [facility] 2022-09-28 2022-09-28 OFFICE STLMLC STLMLC [id number] Co mmon 00:00:00 00:00:00 VISIT EST Spir it PT LEVEL 3 [facility] 2022-09-03 2022-09-03 (TEL) STLMLC STLMLC [id number] Co mmon 00:00:00 00:00:00 [facility] 2022-09-03 2022-09-03 OFFICE STLMLC STLMLC [id number] Co mmon 00:00:00 00:00:00 VISIT EST Spir it PT LEVEL 3 [facility] 2022-08-04 2022-08-04 Outpatient FOG_Cusick_ AOSM AOSM [id number] [facility] 00:00:00 00:00:00 Gladys [id number] Orth ope dic Sports Medicin e 2022-08-04 2022-08-04 Outpatient JAYSON Rose AOSM [id number] 00:00:00 00:00:00 Balaji Rangel [id number] 2022-08-04 2022-08-04 Balaji Rangel AOS[facility] [place] - Ortho [id number] [facility] 00:00:00 00:00:00 Allison Rose MD: [id number] FOG_Ofc dic [facility], [place] [address] , Ph. [phone] 2022-08-02 2022-08-02 Outpatient FOG_Cusick_ AOSM AOSM [id number] [facility] 00:00:00 00:00:00 Gladys [id number] Orth ope dic Sports Medicin e 2022-06-11 2022-06-11 Outpatient FOG_Cusick_ AOSM AOSM [id number] [facility] 00:00:00 00:00:00 Gladys [id number] Orth ope dic Sports Medicin e 2022-05-31 2022-05-31 OFFICE STLMLC STLMLC [id number] Co mmon 00:00:00 00:00:00 VISIT Spirit ESTAB PT - [facility] LEVEL 4 [facility] 2022-05-21 2022-05-21 (TEL) STLMLC STLMLC [id number] Co mmon 00:00:00 00:00:00 [facility] 2022-05-21 2022-05-21 [facility] [id number] Co mmon 00:00:00 00:00:00 VISIT EST Spir it PT LEVEL 3 - [facility] 2022-04-28 2022-04-28 Outpatient FOG_Cusick_ AOSM AOSM [id number] [facility] 10:10:00 10:10:00 Gladys [id number] Orth ope dic Sports Medicin e 2022-04-28 2022-04-28 Balaji TYL[place] - Ortho [id number] [facility] 00:00:00 00:00:00 Allison Rose MD: [id number] FOG_Ofc dic [facility], [place] [address] , Ph. [phone] 2022-04-28 2022-04-28 Outpatient JAYSON RoseSM [id number] 00:00:00 00:00:00 Balaji Rangel [id number] 2022-03-30 2022-03-30 Outpatient FOG_Cusick_ AOSM AOSM [id number] [facility] 05:31:00 05:31:00 Gladys [id number] Orth ope dic Sports Medicin e 2022-02-03 2022-02-04 Inpatient SRINIVASA Rose HCATO SURG [id number] [facility] 05:20:00 12:08:00 Balaji 23 [facility] 2022-01-28 2022-01-28 Outpatient Rose HCACL LABO [id number] [facility] 15:49:00 15:49:00 Balaji 08 [facility] 2022-01-28 2022-01-28 Outpatient RAQUEL GalarzaTO RADI [id number] [facility] 07:51:00 07:51:00 Balaji 11 [facility] 2022-01-14 2022-01-14 (TEL) STLMLC STLMLC [id number] Co mmon 00:00:00 00:00:00 [facility] 2021-11-30 2021-11-30 OFFICE STLMLC STLMLC [id number] Co mmon 00:00:00 00:00:00 VISIT EST Spir it PT LEVEL 3 - [facility] 2021-11-30 2021-11-30 SUB ANNUAL STLMLC STLMLC [id number] Common 00:00:00 00:00:00 MCR Spirit WELLNESS - [facility] VIS[facility] 2021-11-06 2021-11-06 (TEL) STLMLC STLMLC [id number] Co mmon 00:00:00 00:00:00 [facility] 2021-10-26 2021-10-26 OFFICE STLMLC STLMLC [id number] Co mmon 00:00:00 00:00:00 VISIT Spirit ESTAB PT - [facility] LEVEL 4 [facility] 2021-10-01 2021-10-01 OFFICE STLMLC STLMLC [id number] Co mmon 00:00:00 00:00:00 VISIT EST Spir it PT LEVEL 3 - [facility] 2021-10-01 2021-10-01 (TEL) STLMLC STLMLC [id number] Co mmon 00:00:00 00:00:00 [facility] 2021-06-11 2021-06-11 OFFICE STLMLC STLMLC [id number] Co mmon 00:00:00 00:00:00 VISIT [facility] PT LEVEL 3 - [facility] Results Test Description Test Time Test Comments Results Result Comments Source ISTAT BLOOD GAS 2022-02-09 00:48:00 Test Item Value Reference Range Interpretation Comme nts POC PH ARTERIAL (test code = 7.442 7.35-7.45 N See CRITICAL RESULTS Form for PHAP) documentation. POC PCO2 ARTERIAL (test code 35.0 mmHg 35-45 N = PCO2AP) POC-TCO2 ARTERIAL (test code 25 mmol/L 23-27 N = TCO2AP) POC-PO2 ARTERIAL (test code 73 mmHg 80-105 LL = PO2AP) POC-HCO3 ARTERIAL (test code 23.9 mmol/L 22-26 N = HCO3AP) POC-BASE EXCESS ARTERIAL 0 mmol/L -2-3 N (test code = BEAP) POC-SO2 ARTERIAL (test code 95 % 95-98 N = SO2AP) POC HEMOGLOBIN (test code = 13.6 g/dL 12-16 N HBP) POC HEMATOCRIT (test code = 40 % 38-51 N HCTP) SODIUM POC (test code = NAP) 141 mmol/L 138-146 N POTASSIUM POC (test code = 4.2 mmol/L 3.5-4.9 N KP) GLUCOSE POC (test code = 113 mg/dL 70-105 H GLUP) CALCIUM IONIZED (test code = 1.15 mmol/L 1.12-1.32 N SPENCER) - XR SHOULDER 1 V [id number] 15:56:00 [facility] 1955 Sex: F Patient Name: ZINA EATON Unit No: [id number] EXAMS: CPT CODE: [id number] XR SHOULDER 1 [place] LT [address]80 AP portable leftshoulder COMMENT: The patient is status post reverse prosthesis placement which is articulating normally. at 1556 Reported and signed by: Rayshawn Francois MD CC: Balaji Rose MD; Jeramie Jones MD Technologist: KITTY GOETZ (RT.R) Transcribed D/ (1556) [email or web address] [facility] NAME: ZINA EATON [address] [place] [address] PHYS: Jeramie Longoria : 1955 AGE: 66 SEX: F [place] [address] LOC: Y.501 A PHONE #: [phone] EXAM DATE: 02/03/2022 STATUS: ADM IN FAX #: [phone] RAD #: D/C DT PAGE 1 Signed Report Patient Name: ZINA EATON Unit No: [id number]: CPT CODE: [id number] XR SHOULDER 1 [place] LT [address] (Continued) Orig Print D/T: S: 02/03/2022 (1559) [facility] NAME: ZINA EATON [address] [place] [address] PHYS: Jeramie Longoria : 1955 AGE: 66 SEX: F [place] [address] LOC: Y.501 A PHONE #: [phone] EXAM DATE: 02/03/2022 STATUS: ADM IN FAX #: [phone] RAD #: D/C DT PAGE 2 Signed ReportNovel Coronavirus 2019 Inhouse 2022-01-29 03:25:00 Test Item Value Reference Range Interpretation Comments Novel Coronavirus Negative Negative Positive r esults are 2019 Inhouse (test indicativ e of the presence code = COVNONPUI) ofSARS-CoV -2 RNA, clinical correlation wit h patient historyand othe r diagnostic info rmation is necessary to determinepatien t infection status. Positiv e results do not rule out bacterial infection or co -infection with other viru ses. Negative result s do not preclude SARS-C oV-2 infection andsh ould not be used as the sangeetha e basis for patient managementdecis ions. Negative result s must be combined with otherclinical observations, p atient history, and epidemiological information . Detection of SARS-CoV-2 RNA may be affe cted bysample collec tion methods, storag e conditions, and /or stageof infection. Faiza l RNA mutations, vacc inations, antiviraltherap eutics, antibiotics, chemotherapeuti c orimmunosuppres demetrio drugs have not been e valuated for effectson d etection. Results are for the identification of SARS-CoV-2 RNA usingreal-time (RT) polymerase dheeraj n reaction (PCR) technolog yfor the qualitative det ection of nucleic acids f rom [id number] v irus and diagnosis of SA RS-CoV-2 virusinfection. It is an Emergency Use Authorization ( EUA) testauthorized by the U.S. FDA. Novel Coronavirus 2018 [id number] 03:25:00 Test Item Value Reference Range Interpretation Comments Novel Coronavirus Negative Negative Positive r esults are 2019 Inhouse (test indicativ e of the presence code = COVNONPUI) ofSARS-CoV -2 RNA, clinical correlation wit h patient historyand othe r diagnostic info rmation is necessary to determinepatien t infection status. Positiv e results do not rule out bacterial infection or co -infection with other viru ses. Negative result s do not preclude SARS-C oV-2 infection andsh ould not be used as the sangeetha e basis for patient managementdecis ions. Negative result s must be combined with otherclinical observations, p atient history, and epidemiological information . Detection of SARS-CoV-2 RNA may be affe cted bysample collec tion methods, storag e conditions, and /or stageof infection. Faiza l RNA mutations, vacc inations, antiviraltherap eutics, antibiotics, chemotherapeuti c orimmunosuppres demetrio drugs have not been e valuated for effectson d etection. Results are for the identification of SARS-CoV-2 RNA usingreal-time (RT) polymerase dheeraj n reaction (PCR) technolog yfor the qualitative det ection of nucleic acids f rom [id number] v irus and diagnosis of SA RS-CoV-2 virusinfection. It is an Emergency Use Authorization ( EUA) testauthorized by the U.S. FDA. COMPREHENSIVE METABOLIC [id number] 17:23:00 Test Item Value Reference Range Interpretation Comments SODIUM (test code = 142 mmol/L 136-145 N NA) POTASSIUM (test code = 4.6 mmol/L 3.5-5.1 N K) CHLORIDE (test code = 104.0 mmol/L 98-107 N CL) CARBON DIOXIDE (test 26.6 mmol/L 21-32 N code = CO2) GLUCOSE (test code = 98 mg/dL 70-110 N GLU) BLOOD UREA NITROGEN 15 mg/dL 7-18 N (test code = BUN) GLOMERULAR FILTRATION 73.4 >60 Unit o f measure: RATE (test code = GFR) mL/mi n/1.73 [id number] Range:Healthy Adults >90 mL/min/1.73 m2 For Chronic Kidney Disease: Stage II Mild Decrease i n GFR 60-90 Stage III Moderate Decrea se in GFR 30-59 St age IV Severe Decre ase in GFR 15-29 St age V Kidney Failur e <15 CREATININE (test code 0.78 mg/dL 0.55-1.30 N = CREAT) TOTAL PROTEIN (test 7.8 g/dL 6.4-8.2 N code = PROT) ALBUMIN (test code = 4.1 g/dL 3.4-5.0 N ALB) GLOBULIN (test code = 3.7 g/dL 2.2-4.2 N GLOB) ALBUMIN/GLOBULIN RATIO 1.1 0.7-2.0 N (test code = A/G) CALCIUM (test code = 9.2 mg/dL 8.2-10.1 N CA) BILIRUBIN TOTAL (test 0.30 mg/dL 0.2-1.00 N code = BILT) SGOT/AST (test code = 19.0 U/L 15-37 N AST) SGPT/ALT (test code = 35.0 U/L 12-78 N Please note new ALT) normal range. ALKALINE PHOSPHATASE 64 U/L 46-116 N TOTAL (test code = ALKP) - CT UP EXTREM W/O CONT [id number] 11:21:00 [facility] 1955 Sex: F Patient Name: ZINA EATON Unit No: [id number] EXAMS: CPT CODE: [id number] [place] EXTREM W/[place] [address] TECHNIQUE: Volumetric CT data of the left shoulder was obtained without use of intravenous contrast. Images werethen viewed in the axial, coronal and sagittal planes. CT radiation dose optimization is achieved for this examination by the use of a CT protocol in accordance with ACR practice standards and adherence to woodenware assembler's recommendations. INDICATION: LEFT SHOULDER BLUEPRINT PROTOCOL COMPARISON: None. FINDINGS: Severe left shoulder osteoarthritis is demonstrated with marked joint space narrowing, greatest inferiorly as well as subchondral cystic change. Small osteophytes are present. No acute fracture. Rotator cuff musculature is normal in volume. Mild AC joint degenerative changes are present. The visualized left lung is clear. IMPRESSION: Severe left shoulder osteoarthritis. at 1121 Reported and signed by: Blaine Black M.D. CC: Balaji Rose MD Technologist: Smith Carter,(R) CTDI: DLP: Trnscrpt: 01/28/2022 (1121) [facility] NAME: ZINA EATON [address] PHYS: Balaji Masters MD : 1955 AGE: 66 SEX: F [place], [place] [address] LOC: Y.RAD PHONE #: [phone] EXAM DATE: 01/28/2022 STATUS: REG CLI FAX #: [phone] RAD #: D/C DT PAGE 1 Signed Report Patient Name: ZINA EATON Unit No: [id number] EXAMS: CPT CODE: [id number] [place] UP EXTREM W/[place] [address] (Continued) Orig Print D/T: S: 01/28/2022 (1155) [facility] NAME: ZINA EATON [address] [facility] PHYS: Balaji Masters MD : 1955 AGE: 66 SEX: F [place], [place] [address] LOC: Y.RAD PHONE #: [phone] EXAM DATE: 01/28/2022 STATUS: REG CLI FAX #: [phone] RAD #: D/C DT PAGE 2 Signed ReportPROTHROMBIN [id number] 11:19:00 Test Item Value Reference Range Interpretation Comments PROTHROMBIN TIME 12.0 secs 9.7-12.5 N Please note new normal PATIENT (test code = range. PTP) INTERNATIONAL NORMAL 1.08 <2.0 RECOMME NDED THERAPEUTIC RATIO (test code = RANGE FOR ORAL INR) ANTICOAGULANTTR EATMENT: CONDITION INRPr ophylaxis of venous throm bosis in 2.0 - 3.0 high- risk medical or surg ical patientsTreatme nt of venous thrombos is 2.0 - 3.0Prevention o f embolism 2.0 - 3.0Prevention o f recurrent embol ism, or 3.0 - 4.5 patie nts with mechanical pros thetic intravascular v candelaria IS PATIENT ON ANTICOAGULANTS ? WIas Lab been notified if Patient is on Heparin Drip? NOTHROMBOPLASTIN TIME [id number] 11:19:00 Test Item Value Reference Range Interpretation Comments PTT ACTIVATED (test 34.5 secs 26.6-34.6 N Please n ote new code = APTT) normal range. IS PATIENT ON ANTICOAGULANTS ? NHas Lab been notified if Patient is on Heparin Drip? NOCBC W/AUTO [id number] 10:38:00 Test Item Value Reference Range Interpretation Comments WHITE BLOOD CELL (test code = WBC) 6.8 K/mm3 5.8-11.0 N RED BLOOD CELL (test code = RBC) 4.77 M/mm3 4.2-5.4 N HEMOGLOBIN (test code = HGB) 14.6 g/dL 12-16 N HEMATOCRIT (test code = HCT) 44.5 % 37-47 N MEAN CELL VOLUME (test code = MCV) 93 fL 80-98 N MEAN CELL HGB (test code = MCH) 30.6 pg 27-34 N MEAN CELL HGB CONCENTRATION (test 32.8 g/dL 30.8-34.1 N code = MCHC) RED CELL DISTRIBUTION WIDTH (test 13.1 % 11-16 N code = RDW) PLT (test code = PLT) 226 K/mm3 130-400 N MEAN PLATELET VOLUME (test code = 10.6 fL 8.9-12.1 N MPV) NEUTROPHIL % (test code = NT%) 61.2 % 45-70 N LYMPHOCYTE % (test code = LY%) 30.6 % 20-40 N MONOCYTE % (test code = MO%) 6.6 % 3-10 N EOSINOPHIL % (test code = EO%) 1.2 % 1-5 N BASOPHIL % (test code = BA%) 0.3 % 0.0-1.1 N NEUTROPHIL # (test code = NT#) 4.18 K/mm3 2.00-7.50 N LYMPHOCYTE # (test code = LY#) 2.09 K/mm3 1.50-4.00 N MONOCYTE # (test code = MO#) 0.45 K/mm3 0.2-0.8 N EOSINOPHIL # (test code = EO#) 0.08 K/mm3 0.04-0.4 N BASOPHIL # (test code = BA#) 0.02 K/mm3 0.02-0.10 N MANUAL DIFF REQUIRED (test code = NO MANUAL DIFF MDIFF) NUCLEATED RED BLOOD CELL (test 0 % 0-0 N code = NRBC)
--- NOTE | 2022-11-29 09:39 | RAD REPORT ---
EXAM DESCRIPTION: RAD - Tib Fib Left - 11/29/2022 9:23 am CLINICAL HISTORY: Fall, leg pain COMPARISON: None. FINDINGS: No fracture of the tib-fib confirmed. Lateral tibial plateau is detailed on separate left knee report. No periosteal reaction. No foreign body. Contusion changes are seen anterior to the knee joint which is further detailed on s eparate report. IMPRESSION: No acute left tib-fib finding. Separate left knee report addresses tibial plateau and a nterior knee soft tissue findings.
--- NOTE | 2022-11-29 09:43 | RAD REPORT ---
EXAM DESCRIPTION: RAD - Knee Left 3 View - 11/29/2022 9:23 am CLINICAL HISTORY: PAIN, fall with persistent pain COMPARISON: No comparisons FINDINGS: No gross fracture deformity is seen. There are subtle changes to the trabecula of the late ral tibial plateau without loss in height. Tibial plateau fracture is not entirely excluded. Patient has no other finding concerning for possible fracture or acute bone process. There are very a dvanced degenerative changes are present. Significant medial compartment narrowing is present in the medial and lateral compartments have large marginal spurs. Prominent condylar notch and tibial spine bone spurring is present. Patella femoral joint space is narrowed with mild patella marginal spurring .No joint effusion or hemarthrosis identifiable. No patella tendon abnormality suspected. There is co ntusion or edema change in the soft tissues anterior to the knee joint. No foreign body is identified . Oval eggshell calcification is seen along the posterior joint the regarded as clinically significant. IMPRESSION: No gross bone deformity is seen though there are subtle changes to the trabecula of the lateral tibial plateau. Nondepressed tibial plateau fracture is not entirely excluded. Thin section C T imaging could be performed if the patient has continued, unexplained pain. Significant tri compartment degenerative change as detailed. No joint effusion or hemarthrosis. Anterior knee contusion or edema changes. Clinical concerns for internal derangement or occult bony injury could be further assessed with MR im aging.
--- NOTE | 2022-11-29 09:44 | RAD REPORT ---
EXAM DESCRIPTION: RAD - Hand Left 3 View - 11/29/2022 9:24 am CLINICAL HISTORY: PAINafter fall COMPARISON: None. FINDINGS: No fracture, dislocation or periosteal reaction noted. IP joint space narrowing is seen. N o erosive or destructive change. Minimal spurring changes are seen in the second and third DIP joints . Trapezium first metacarpal degenerative changes minimal. No suspicious soft tissue findings. IMPRESSION: Left hand degenerative change as detailed. No acute bone or joint finding.
--- NOTE | 2022-11-29 09:45 | RAD REPORT ---
EXAM DESCRIPTION: RAD - Wrist Left 3 View - 11/29/2022 9:23 am CLINICAL HISTORY: PAINafter fall COMPARISON: No comparisons FINDINGS: No fracture is identified. There is no dislocation or periosteal reaction noted. Mild dege nerative changes present at the trapezium articulation with the scaphoid and first metacarpal. Patien t has negative ulnar variance configuration. This can be a source for pain but is unrelated to acute fall. No foreign body or other soft tissue abnormality. IMPRESSION: Negative left wrist examination for acute finding.
--- NOTE | 2022-11-29 10:33 | RAD REPORT ---
EXAM DESCRIPTION: CT - Knee Left Wo Con - 11/29/2022 10:22 am CLINICAL HISTORY: r/o fracture, fall, knee pain, abnormal plain films COMPARISON: Knee Left 3 View dated 11/29/2022 TECHNIQUE: Axial noncontrast 2 millimeter thick images of the knee were obtained. Sagittal and coron al reformatted images were generated and reviewed. All CT scans are performed using dose optimization technique as appropriate and may include automate d exposure control or mA/KV adjustment according to patient size. FINDINGS: Patient has significant degenerative change in the tibial plateau with large marginal spur s and large tibial spine spurring. No fracture of the lateral tibial plateau is seen. No acute proxim al tib-fib finding. Significant degenerative marginal spurring seen in the femoral condyles. No acute patella or distal femur finding. Patella has significant marginal spurring. There is a 2.5 centimeter thin-walled intra-articular calcification. This is the correlate to the egg shell calcification seen on plain film. No abnormal joint effusion. No lipoma hemarthrosis. Patella tendon is unremarkable. There does appear to be some contusion or edema in the subcutaneous fatty tissues anterior to the knee joint. IMPRESSION: Degenerative changes are advanced in the tibial plateau but no fracture is present. Advanced tri compartment degenerative changes as detailed. No acute finding identifiable.
--- NOTE | 2022-11-29 10:50 | EDPHYS ---
Physician Documentation [facility] Name: Steffany Marshall Age: 67 yrs Sex: Female : 1955 Arrival Date: 11/29/2022 Time: 08:28 Bed 11 Private MD: ED Physician Abdelrahman Mahmood HPI: 11/29 09:36 This 67 yrs old Female presents to ER via Ambulatory with complaints of Leg Pain. en 09:36 67-year-old female presents to ED after mechanical fall 6 days ago with left lower en extremity pain and bruising. Also reports mild pain over the left thenar eminence. No numbness, tingling, weakness. She is able to weight-bear. Historical: - Allergies: 08:40 PENICILLINS; jh5 08:40 Sulfa (Sulfonamide Antibiotics); jh5 08:40 Nitrofurantoin Macrocrystal; jh5 08:40 Zofran; jh5 08:40 Tramadol HCl; jh5 08:40 Aloxi; jh5 08:40 Lotemax; jh5 - Home Meds: 08:40 montelukast 10 mg oral tab [Active]; gabapentin 100 mg oral cap once daily [Active]; jh5 olopatadine 0.2% eye drops daily [Active]; ibandronate 150 mg oral tab once moly [Active]; ketoconazole 2 % Topical crea as needed [Active]; ibuprofen 800 mg Oral tab 1 tab 3 times per day [Active]; - PMHx: 08:44 breast cancer; 5 - PSHx: 08:44 gallbladder; double mastectomy - right limb alert; left shoulder replacement; 5 - Immunization history:: Adult Immunizations up to date. - Social history:: Smoking status: Patient denies any tobacco usage or history of. ROS: 09:36 Constitutional: Negative for fever, chills, and weight loss. en 09:36 MS/extremity: Positive for Bruising over left lower extremity and left hand. Able to en weight-bear. . Exam: 09:36 Constitutional: This is a well developed, well nourished patient who is awake, alert, en and in no acute distress. Head/Face: Normocephalic, atraumatic. Cardiovascular: Regular rate and rhythm with a normal S1 and S2. No gallops, murmurs, or rubs. Normal PMI, no JVD. No pulse deficits. Respiratory: Lungs have equal breath sounds bilaterally, clear to auscultation and percussion. No rales, rhonchi or wheezes noted. No increased work of breathing, no retractions or nasal flaring. MS/ Extremity: Full range of motion of bilateral upper and lower extremity. Ambulates unassisted. Left lower extremity with extensive anterior bruising over the left knee extending distally with dependent ecchymosis that is resolving. Calves are supple bilaterally. Left knee is ligamentously stable without patellar hypertension or joint effusion. No tenderness along the ankle. 2+ distal pulses. Left hand has mild tenderness over the thenar eminence without deformity or swelling. Full range of motion at the first MCP and PIP joint. Collateral ligaments at the MCP joint of the thumb are stable. No snuffbox tenderness. She has a resolving bruise over the distal radius without swelling or deformity. Vital Signs: 08:38 BP 152 / 86; Pulse 115; Resp 16; Temp 98.6; Pulse Ox 98% ; Weight 99.79 kg; Height 5 jh5 ft. 3 in. (160.02 cm); Pain 8/10; 08:38 Body Mass Index 38.97 (99.79 kg, 160.02 cm) jh5 MDM: 08:36 Patient medically screened. en 08:52 Patient medically screened. nicki 09:36 Differential diagnosis: dislocation, open fracture, contusion. Data reviewed: en radiologic studies, plain films. 09:58 Data reviewed: radiologic studies, plain films, Left wrist and hand x-ray images en reviewed by me; negative. No fracture appreciated. Left knee with questionable tibial plateau fracture, will order CT noncontrast of the left lower extremity to evaluate further.. 10:44 ED course: 67-year-old female with left leg pain and left wrist pain after mechanical en fall 6 days ago. Exam is as documented above. Lower suspicion for fracture given exam but will get imaging. X-rays showed questionable tibial plateau fracture so CT of the lower extremity was ordered. CT imaging was reviewed without tibial plateau fracture. There was mild degenerative joint disease otherwise normal CT imaging of the left lower extremity. Patient is already weightbearing still continue weightbearing as tolerated with referral to PCP for outpatient physical therapy as needed. No additional intervention or medications are needed at this time and patient is safe for discharge. Patient's blood pressure is elevated in the ED but does not require emergent intervention. She can follow-up with her primary care doctor for management and keep blood pressure log. Heart rate improved at discharge to upper 80s.. 10:44 ED course: . en 11/29 09:01 Order name: Tib Fib Left XRAY; Complete Time: 09:41 en 11/29 09:01 Order name: Knee Left 3 View XRAY; Complete Time: 09:56 en 11/29 09:01 Order name: Wrist Left (3 View) XRAY; Complete Time: 09:56 en 11/29 09:01 Order name: Hand Left 3 View XRAY; Complete Time: 09:56 en 11/29 10:20 Order name: Knee Left Wo Con; Complete Time: 10:44 EDMS Administered Medications: No medications were administered Disposition Summary: 11/29/22 10:49 Discharge Ordered Location: Home en Problem: new en Symptoms: have improved en Condition: Stable en Diagnosis - Contusion of lower leg en - Contusion of hand en - Essential (primary) hypertension en Followup: en - With: Efrain Brink MD - When: As needed - Reason: Re-evaluation by your physician Discharge Instructions: - Discharge Summary Sheet en - Hypertension, Adult en - Contusion, Nnib-ta-Lvmy en Forms: - Medication Reconciliation Form en - Thank You Letter en - Antibiotic Education en - Prescription Opioid Use en Signatures: Dispatcher [employer] EDMS Abdelrahman Mahmood MD MD cha Rees, Jessica, RN RN jh5 Celia Jacobsen PA PA en Corrections: (The following items were deleted from the chart) 09:39 09:36 MS/extremity: Positive for Left lower extremity with full range of motion. No en swelling or edema to the ankle or knee. She does have extensive anterior ecchymosis that is resolving to the knee and the upper leg with dependent ecchymosis. Neurovascular intact, calf supple. Ligamentously stable to ankle and knee. No patellar apprehension. 2+ distal pulses. Left hand with tenderness palpation over thenar eminence . Full range of motion to left thumb at MCP PIP. Ligamentously stable at MCP joint. Cap refill less than 2 seconds. Small resolving bruise over the distal radius without swelling or deformity., en 10:07 10:02 CT LEFT TIBFIB WO COTNRAST ordered. EDMS EDMS 10:20 10:07 Tib Fib Left Wo Con ordered. EDND EDMS 10:46 10:44 ED course: 67-year-old female with left leg pain and left wrist pain after en mechanical fall 6 days ago. Exam is as documented above. Lower suspicion for fracture given exam but will get imaging. X-rays showed questionable tibial plateau fracture so CT of the lower extremity was ordered. CT imaging was reviewed without tibial plateau fracture. There was mild degenerative joint disease otherwise normal CT imaging of the left lower extremity. Patient is already weightbearing still continue weightbearing as tolerated with referral to PCP for outpatient physical therapy as needed. No additional intervention or medications are needed at this time and patient is safe for discharge.. en 10:47 10:44 ED course: 67-year-old female with left leg pain and left wrist pain after en mechanical fall 6 days ago. Exam is as documented above. Lower suspicion for fracture given exam but will get imaging. X-rays showed questionable tibial plateau fracture so CT of the lower extremity was ordered. CT imaging was reviewed without tibial plateau fracture. There was mild degenerative joint disease otherwise normal CT imaging of the left lower extremity. Patient is already weightbearing still continue weightbearing as tolerated with referral to PCP for outpatient physical therapy as needed. No additional intervention or medications are needed at this time and patient is safe for discharge. Patient's blood pressure is elevated in the ED but does not require emergent intervention. She can follow-up with her primary care doctor for management and keep blood pressure log.. en
--- NOTE | 2022-11-29 10:50 | ER ---
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 Coronavirus screen: Vaccine status: Patient reports receiving the 2nd dose of the covid vaccine. Client denies travel out of the [place] in the last 14 days. Ebola Screen: Patient negative for fever greater than or equal to 101.5 degrees Fahrenheit, and additional compatible Ebola Virus Disease symptoms Patient denies exposure to infectious person. Patient denies travel to an Ebola-affected area in the 21 days before illness onset. Initial Sepsis Screen: Does the patient meet any 2 criteria? No. Patient's initial sepsis screen is negative. Does the patient have a suspected source of infection? No. Patient's initial sepsis screen is negative. Risk Assessment: Do you want to hurt yourself or someone else? Patient reports no desire to harm self or others. Onset of symptoms was November 23, 2022. 08:38 Method Of Arrival: Ambulatory [facility] 08:38 Acuity: HENRY 3 5 Triage Assessment: 08:44 General: Appears in no apparent distress. uncomfortable, well groomed, well developed, jh5 well nourished, Behavior is calm, cooperative, appropriate for age. Pain: Complains of pain in left knee, left wrist. Historical: - Allergies: 08:40 PENICILLINS; 5 08:40 Sulfa (Sulfonamide Antibiotics); 5 08:40 Nitrofurantoin Macrocrystal; 5 08:40 Zofran; 5 08:40 Tramadol HCl; 5 08:40 Aloxi; 5 08:40 Lotemax; [facility] - Home Meds: 08:40 montelukast 10 mg oral tab [Active]; gabapentin 100 mg oral cap once daily [Active]; 5 olopatadine 0.2% eye drops daily [Active]; ibandronate 150 mg oral tab once moly [Active]; ketoconazole 2 % Topical crea as needed [Active]; ibuprofen 800 mg Oral tab 1 tab 3 times per day [Active]; - PMHx: 08:44 breast cancer; [facility] - PSHx: 08:44 gallbladder; double mastectomy - right limb alert; left shoulder replacement; [facility] - Immunization history:: Adult Immunizations up to date. - Social history:: Smoking status: Patient denies any tobacco usage or history of. Screenin:[address] [facility] ED Fall Risk Assessment (Adult) History of falling in the last 3 months, [facility] including since admission Yes- single mechanical fall (1 pt) Confusion or Disorientation No (0 pts) Intoxicated or Sedated No (0 pts) Impaired Gait Yes (1 pt) Mobility Assist Device Used No (0 pt) Altered Elimination No (0 pt) Score/Fall Risk Level 3 or more points = High Risk. Abuse screen: Denies threats or abuse. Denies injuries from another. Nutritional screening: No deficits noted. Tuberculosis screening: No symptoms or risk factors identified. Vital Signs: 08:38 BP 152 / 86; Pulse 115; Resp 16; Temp 98.6; Pulse Ox 98% ; Weight 99.79 kg; Height 5 [facility] ft. 3 in. (160.02 cm); Pain 8/10; 08:38 Body Mass Index 38.97 (99.79 kg, 160.02 cm) [facility] ED Course: 08:28 Patient arrived in ED. [email or web address] 08:36 Celia Jacobsen PA is PHCP. en 08:36 Abdelrahman Mahmood MD is Attending Physician. en 08:40 Triage completed. 5 08:44 Arm band placed on right wrist. jh5 09:25 Tib Fib Left XRAY In Process Unspecified. EDMS 09:25 Knee Left 3 View XRAY In Process Unspecified. EDMS 09:25 Wrist Left (3 View) XRAY In Process Unspecified. EDMS 09:25 Hand Left 3 View XRAY In Process Unspecified. EDMS 10:23 Knee Left Wo Con In Process Unspecified. EDMS 10:48 Efrain Brink MD is Referral Physician. en 11:04 France Monroe, KENIA is Primary Nurse. 5 11:04 Patient has correct armband on for positive identification. Call light in reach. Side 5 rails up X 1. 11:04 No provider procedures requiring assistance completed. IV discontinued, intact, jh5 bleeding controlled, No redness/swelling at site. Administered Medications: No medications were administered Medication: 11:06 VIS not applicable for this client. 5 Outcome: 10:49 Discharge ordered by . [email or web address] 11:04 Discharged to home ambulatory. [facility] 11:04 Condition: good 11:04 Discharge instructions given to patient, family, Instructed on discharge instructions, follow up and referral plans. medication usage, safety practices, Demonstrated understanding of instructions, follow-up care, medications. 11:06 Patient left the ED. 5 Signatures: Dispatcher [employer] EDCheyenne Cooper 4 France Monroe RN RN 5 Celia Jacobsen PA PA en
[2022-11-29 11:12] VITALS: BP 152/86; TEMP 98.6; O2SAT 98
== END 2022-11-29 11:06 | disposition home or self-care (01) ==
LOC: ER 08:25
DX: S80.12XA Contusion of left lower leg, initial encounter (principal); S60.222A Contusion of left hand, initial encounter; I10 Essential (primary) hypertension; Z85.3 Personal history of malignant neoplasm of breast; Z90.13 Acquired absence of bilateral breasts and nipples; Z88.0 Allergy status to penicillin; Z88.2 Allergy status to sulfonamides; Z88.5 Allergy status to narcotic agent; Z88.8 Allergy status to other drugs, medicaments and biological substances
CPT/HCPCS: 73700; 99283